=== PATIENT | male | born 1940 | race Caucasian/White ===

== ENCOUNTER → 2016-10-19 | Day surgery (SDC) | payer MEDICARE ==
[~2016-10-19] MED LIST: ASPI81TA81 PO; BUPIVACAINE HCL PF 0.5% 30 ML VIAL ONE; C 50TAB PO; CENTCHW4 CHEW; EZET1TAB8 PO; LISI10TA PO; PROPOFOL 200 MG/20 ML AMP IV ONE; SIMV20TA PO; TRIAMCINOLONE ACETONIDE 40 MG/ML VIAL I-ARTICULR ONE; methylPREDNISolone ACETATE 40 MG/ML VIAL I-ARTICULR ONE
--- NOTE | 2016-10-20 09:04 | M6 ---
cc: ALLYN MORRIS M.D. DATE: 10/19/2016 DATE OF : 1940 PROCEDURE Fluoroscopically guided injection bilateral sacroiliac joints. PROCEDURE NOTE History and physical was completed and signed. Consent was signed. Procedure site was marked. Medications were listed and reconciled. Pain score was recorded. Allergies were noted. Timeout was taken. Fluoroscopy time was recorded where applicable. Sedation was administered or directed by Dr. Morris. The patient was given oxygen. The patient was monitored by a registered nurse. Total procedure time was greater than 15 minutes. An IV was started, blood pressure cuff, pulse oximeter and EKG were applied. The patient was placed in the prone position on a Param table, sedated with small amounts of propofol titrated to effect. Vital signs were monitored and remained stable throughout the procedure. The sacral area was prepped with alcohol and 10% Betadine solution, draped with sterile drapes. Fluoroscopy was used shooting from medial to lateral to clearly visualize the posterior joint line of the bilateral sacroiliac joints. Separate sterile 5-inch, 22-gauge spinal needles were advanced into these joints under fluoroscopic guidance. There was negative aspiration for blood or any other type of fluid and at each location the patient was given 2 mL of 0.5% Marcaine, 20 mg of Depo-Medrol, 20 mg of Kenalog. Following the procedure the patient was taken to the recovery room with stable vital signs, neurologically intact. He will be evaluated immediately and with follow-up to determine if he has a subjective decrease in his usual pain and a corresponding objective increase in his functional capabilities. W. MD RAJENDRA Kim/SUDARSHAN /8:56 AM /8:52 AM
== END | disposition home or self-care (01) ==
LOC: PHSDC 06:39
PROVIDERS: ATTEND Pain Medicine Interventional Pain Medicine
DX: M51.86 Other intervertebral disc disorders, lumbar region (principal); I10 Essential (primary) hypertension; H40.9 Unspecified glaucoma; Z85.51 Personal history of malignant neoplasm of bladder; Z88.8 Allergy status to other drugs, medicaments and biological substances
CPT/HCPCS: 99152; G0260; J1030; J3301; 27096

== ENCOUNTER → 2016-11-01 | Day surgery (SDC) | payer MEDICARE ==
[~2016-11-01] MED LIST changes: -ASPI81TA81 PO; -BUPIVACAINE HCL PF 0.5% 30 ML VIAL ONE; +BUPIVACAINE HCL PF 0.75% 30 ML VIAL ONE; -C 50TAB PO; -EZET1TAB8 PO; -methylPREDNISolone ACETATE 40 MG/ML VIAL I-ARTICULR ONE
--- NOTE | 2016-11-03 14:18 | M6 ---
cc: ALLYN MORRIS M.D. DATE: 11/01/2016 DATE OF : 1940 PROCEDURE Fluoroscopically guided injection bilateral lumbar facet joints (bilateral L3-4, L4-5 and L5-S1 facet joints). PROCEDURE NOTE History and physical was completed and signed. Consent was signed. Procedure site was marked. Medications were listed and reconciled. Pain score was recorded. Allergies were noted. Timeout was taken. Fluoroscopy time was recorded where applicable. Sedation was administered or directed by Dr. Morris. The patient was given oxygen. The patient was monitored by a registered nurse. Total procedure time was greater than 15 minutes. An IV was started, blood pressure cuff, pulse oximeter and EKG were applied. The patient was placed in the prone position on a Param table, sedated with small amounts of propofol titrated to effect. Vital signs were monitored and remained stable throughout the procedure. The lumbar area was prepped with alcohol and 10% Betadine solution and draped with sterile drapes. Fluoroscopy was used in a Roman dog view to clearly visualize the bilateral lumbar facet joints at L3-4, L4-5 and L5-S1. Separate sterile 3-1/2 inch, 25-gauge spinal needles were advanced into these joints under fluoroscopic guidance. There was negative aspiration for blood or any other type of fluid and at each location the patient was given 1 mL of Marcaine 0.75% which contained 10 mg of Kenalog. Following the procedure the patient was taken to the recovery room with stable vital signs, neurologically intact. He will be evaluated immediately and with follow-up to determine if he has a subjective decrease in his usual pain and a corresponding objective increase in his functional capabilities. WMD RAJENDRA Washburn/SUDARSHAN /9:14 AM /2:17 PM
== END | disposition home or self-care (01) ==
LOC: PHSDC 07:21
PROVIDERS: ATTEND Pain Medicine Interventional Pain Medicine
DX: M54.5 Low back pain (principal)
CPT/HCPCS: 64493; 64494; 64495; 99152; J3301

== ENCOUNTER → 2016-12-16 | Outpatient (CLI) | payer MEDICARE ==
[~2016-12-16] MED LIST changes: -BUPIVACAINE HCL PF 0.75% 30 ML VIAL ONE; -PROPOFOL 200 MG/20 ML AMP IV ONE; -TRIAMCINOLONE ACETONIDE 40 MG/ML VIAL I-ARTICULR ONE
[2016-12-16 16:03] LABS: HEMATOCRIT 46.9 % (39.0-51.0); MEAN CORPUSCULAR HEMOGLOBIN 33.8 PG (27.0-34.0); MEAN CORPUSCULAR HGB CONC 34.2 % (32.0-36.0); PLATELET COUNT 193 TH/MM3 (150-450); RED BLOOD COUNT 4.74 MIL/MM3 (4.50-5.90); RED CELL DISTRIBUTION WIDTH 13.2 % (11.6-17.2); REVIEW FLAG FINAL; WHITE BLOOD COUNT 7.2 TH/MM3 (4.0-11.0)
[2016-12-16 16:17] LABS: BICARBONATE 26.5 MEQ/L (21.0-32.0); POTASSIUM 3.9 MEQ/L (3.5-5.1)
== END ==
LOC: PLAB 11:43
PROVIDERS: ATTEND Family Medicine
DX: R31.9 Hematuria, unspecified (principal)
CPT/HCPCS: 36415; 80048; 85027